=== PATIENT | female | born 2005 | race Hispanic/Latino ===

== ENCOUNTER 2023-04-03 23:28 | Emergency (ER) | payer SELFPAY ==
[2023-04-03 23:56] LABS: Bilirubin Neg (Negative); Blood, Urine Negative (Negative); Clarity Clear (Clear); Glucose, Urine (Dipstick) Normal (Negative); Ketone, Urine Negative (Negative); Leukocyte Negative (Negative); Nitrite Negative (Negative); Protein, Urine (Dipstick) Negative (Neg-Trace); Urobilinogen Normal mg/dL (Less than 2)
[2023-04-03 23:58] LABS: Pregnancy Test - Urine (BHCG) Negative (Negative)
[2023-04-03 23:59] LABS: Pregu Control Background? CLEAR/WHITE (CLR/WHITE); Pregu Control Bar Appear? YES (CONTROL BAR)
[2023-04-04 00:09] LABS: Bacteria/HPF None Seen HPF (None Seen); CAUTI Indications for Culture Pelvic or flank pain; RBC/HPF None Seen HPF (0-3); Squamous Epithelial 0-3 HPF (0-3); WBC/HPF 0-3 HPF (0-3)
[2023-04-04 00:10] LABS: Urine Culture Reflex No No
[2023-04-04 01:12] LABS: Troponin I Less than 0.010 ng/mL (< 0.028)
[2023-04-04 02:50] LABS: SARS-CoV-2 NAA Rapid Test Not Detected (NotDetected)
== END 2023-04-04 03:15 | disposition home or self-care (01) ==
LOC: EDBD 23:28 → CSHERS 23:28
DX: M79.10 Myalgia, unspecified site (principal)
CPT/HCPCS: 36415; 71045; 81001; 81025; 84484; 85379; 93005

== ENCOUNTER 2025-01-12 01:55 | Inpatient (IN) | payer MEDICAID, OTHER, SELFPAY ==
[2025-01-12] MEDS ORDERED: hydrALAZINE 20 MG/ML VIAL SLOW IVP PRN ×2 (02:21→04:50)
[2025-01-12 02:23] VITALS: BMI 27.6
[2025-01-12 03:31] LABS: Fetal Membranes Rupture RUPTURE DETECTED (No Rupture)
[2025-01-12] MEDS ORDERED: Diphenoxylate HCl/Atropine Tablet PO PRN ×2 (04:50)
[2025-01-12] MEDS ORDERED: Lidocaine 1% (PF) 30 ML VIAL SC PRN (04:50)
[2025-01-12] MEDS ORDERED: Carboprost 250 MCG/ML AMP IM PRN (04:50)
[2025-01-12] MEDS ORDERED: Methylergonovine 0.2 MG/ML VIAL IM PRN (04:50)
[2025-01-12] MEDS ORDERED: Tranexamic Acid 1,000 MG/10 ML VIAL IVP PRN (04:50)
[2025-01-12] MEDS ORDERED: Ondansetron PF 4 MG/2 ML Vial IVP PRN ×2 (04:50→09:25)
[2025-01-12 04:58] LABS: Hematocrit 34.7 % (34.9-44.5); Hemoglobin 11.9 g/dL (12.0-15.5); Mean Corpuscular Hemoglobin 31.4 pg (27.0-33.0); Mean Corpuscular Volume 91.6 fL (81.6-98.3); Platelet Count 204 10x3/uL (150-450); Red Blood Cell (RBC) Count 3.79 10x6/uL (3.90-5.03); White Blood Cell (WBC) Count 9.98 10x3/uL (3.5-10.5)
[2025-01-12] MEDS ORDERED: Oxytocin 30 units/NS 500 ML 500 ML IV SCH (05:00)
[2025-01-12] MEDS ORDERED: Acetaminophen 500 MG TAB PO PRN (05:16)
[2025-01-12 05:28] LABS: Syphilis Antibody Index 0.08 S/CO (<1.00 Non-Reactive)
[2025-01-12 05:29] LABS: Hep B Surf Ag - L&D Non-Reactive S/CO (NonReactive)
[2025-01-12] MEDS ORDERED: Communication Order-Pharmacy FS SCH (09:30)
[2025-01-12] MEDS: fentaNYL/Ropivacaine Epidural 100 ML ONE (09:41)
[2025-01-12] MEDS: Oxytocin 30 units/NS 500 ML 500 ML IV SCH (13:03)
[2025-01-12] MEDS: fentaNYL 2 mcg/Ropivacaine 0.2% Epidural 100 ML CADD EPIDURAL SCH (20:55)
[2025-01-12] MEDS: diphenhydrAMINE 50 MG/ML VIAL IVP PRN (21:43)
[2025-01-12] MEDS: Acetaminophen 325 MG TAB PO PRN (23:38)
[2025-01-13] MEDS: Gentamicin 312 MG, Admixture Fee 1 EACH in Sodium Chloride 0.9% 100 ML IVPB SCH (01:30)
[2025-01-13 02:23] LABS: Analyzer IN Cardio CS NICU; RapidComm Collect By RN; pH (Cord, venous) 7.345 (7.250-7.350)
[2025-01-13] MEDS: Ibuprofen 800 MG TAB PO PRN (03:50)
[2025-01-13] MEDS ORDERED: hydrALAZINE 20 MG/ML VIAL SLOW IVP PRN (07:56)
[2025-01-13] MEDS ORDERED: Bisacodyl 10 MG SUPP PR PRN (07:56)
[2025-01-13] MEDS ORDERED: Methylergonovine 0.2 MG/ML VIAL IM PRN (07:56)
[2025-01-13] MEDS ORDERED: Milk Of Magnesia 30 ML UDCUP PO PRN (07:56)
[2025-01-13] MEDS ORDERED: Ondansetron PF 4 MG/2 ML Vial IVP PRN (07:56)
[2025-01-13] MEDS ORDERED: Boostrix 0.5 ML (Tdap) VIAL (>/=7 yrs of age) IM ONE (07:56)
[2025-01-13] MEDS ORDERED: Lanolin Ointment 7 GM TUBE TOP PRN (07:56)
[2025-01-13] MEDS ORDERED: Preparation H Ointment 28 GM TUBE PR PRN (07:56)
[2025-01-13] MEDS ORDERED: Oxytocin 30 units/NS 500 ML 500 ML IV SCH (08:00)
[2025-01-13] MEDS: Benzocaine-Menthol 82.5 ML CAN TOP PRN (08:58)
[2025-01-13] MEDS ORDERED: Bupivacaine HCl 0.5%/Epinephrine 1:200,000/PF 30 ml Vial ONE (09:00)
[2025-01-13] MEDS ORDERED: Bupivacaine 0.25% HCL 30 ML VIAL ONE (09:00)
[2025-01-13] MEDS: Ferrous Sulfate 325 MG TAB PO SCH (09:02)
[2025-01-13] MEDS: Ibuprofen 800 MG TAB PO SCH (15:19)
[2025-01-15 08:28] VITALS: BP 98/57; TEMP 97.4
== END 2025-01-15 16:55 | disposition home or self-care (01) | DRG 805 ==
LOC: CSHLD/OP 01:55 → CSHLD 03:44 → CSHPP 01-13 04:45
PROVIDERS: ADMIT Family Medicine; ATTEND Family Medicine
DX: O99.02 Anemia complicating childbirth (principal); O41.1030 Infection of amniotic sac and membranes, unspecified, third trimester, not applicable or unspecified; Z37.0 Single live birth; O71.4 Obstetric high vaginal laceration alone; O77.0 Labor and delivery complicated by meconium in amniotic fluid; O69.81X0 Labor and delivery complicated by cord around neck, without compression, not applicable or unspecified; Z3A.37 37 weeks gestation of pregnancy
CPT/HCPCS: 36415; 51701; 51702; 82805; 84112; 85027; 86780; 86850; 86900; 86901; 87340; 88307; 99285; J0290; J0595; J0665; J1200; J1580; J2590